=== PATIENT | male | born 1950 | race Caucasian/White ===

== ENCOUNTER 2020-06-08 08:10 | Outpatient (CLI) | payer MEDICARE, OTHER, SELFPAY ==
--- NOTE | 2020-06-08 08:23 | USCV_ITS ---
El Perez Age: 69 Gender: M : 1950 Exam Date: 06/08/2020 08:40 Ordering Phys: Jaz Chris APN Technologist: Ramesh Hassan Exam Location: [facility] [place] Indication: SCREENING HISTORY: Diameter (cm) AP x Transverse x Length Velocity (cm/s) Waveform Prox Aorta: 2.26 x 2.32 x 64.50 Mid Aorta: 2.20 x 2.63 x 85.90 Distal Aorta: 2.43 x 2.74 x 85.90 Right Iliac Prox: 1.04 x 1.45 x 78.60 Left Iliac Prox: 1.00 x 1.37 x 81.10 Stent Prox Landing x x Aneurysmal Sac Max x x Lt Lat Sac Dim Rt Lat Sac Dim Stent Dist Landing x x Right Iliac Stent x x Left Iliac Stent x x Right Renal Art Left Renal Art FINDINGS: CONCLUSIONS No significant abdominal aortic or bilateral iliac aneurysm. Mild atheromatous disease Adam Seo MD (Electronically Signed) Final Date: 08 June 2020 15:45 S
== END 2020-06-08 08:11 | disposition home or self-care (01) ==
LOC: RAD 08:17
PROVIDERS: Visit Provider Nurse Practitioner
DX: Z13.6 Encounter for screening for cardiovascular disorders (principal); Z87.891 Personal history of nicotine dependence; I70.0 Atherosclerosis of aorta
CPT/HCPCS: 93978

== ENCOUNTER 2020-09-28 08:44 | Outpatient (CLI) | payer MEDICARE, OTHER, SELFPAY ==
--- NOTE | 2020-09-28 09:05 | XRR_ITS ---
PROCEDURE INFORMATION: Exam: XR Left Knee Exam date and time: 09/28/2020 9:05 AM Age: 70 years old Clinical indication: Pain; Knee; Left; Additional info: Pain in left knee TECHNIQUE: Imaging protocol: XR Left knee. Views: 1 or 2 views. COMPARISON: No relevant prior studies available. FINDINGS: Bones/joints: No fracture. No dislocation. No joint space narrowing. Mild joint effusion. There is an enthesophyte at the superior margin of the patella. Soft tissues: No acute soft tissue abnormality. XR/XR knee LT 1-2V [id number] IMPRESSION: Mild joint effusion.
== END 2020-09-28 08:45 | disposition home or self-care (01) ==
LOC: RADWPI 08:49
PROVIDERS: PCP Nurse Practitioner; Visit Provider Nurse Practitioner
DX: M25.562 Pain in left knee (principal); M25.462 Effusion, left knee
CPT/HCPCS: 73560

== ENCOUNTER 2021-03-29 11:39 | Outpatient (CLI) | payer MEDICARE, SELFPAY ==
--- NOTE | 2021-03-29 11:52 | XRR_ITS ---
PROCEDURE INFORMATION: Exam: XR Cervical Spine Exam date and time: 03/29/2021 12:10 PM Age: 70 years old Clinical indication: Pain; Cervicalgia; Patient HX: Strain while lifting 1 week ago TECHNIQUE: Imaging protocol: XR of the cervical spine. Views: 2 or 3 views. COMPARISON: No relevant prior studies available. FINDINGS: Bones/joints: No fracture or other acute bone or joint abnormalities are seen in the cervical spine. There is anterior fusion which is probably surgically related from C5-C7. Degenerative changes are present with mild disc space narrowing. There is no significant malalignment. Soft tissues: Unremarkable. XR/XR cervical spine 3V* [id number] IMPRESSION: No acute abnormalities are seen in the cervical spine.
== END 2021-03-29 11:40 | disposition home or self-care (01) ==
PROVIDERS: PCP Nurse Practitioner; Visit Provider Nurse Practitioner Family
DX: M54.2 Cervicalgia (principal)
CPT/HCPCS: 72040

== ENCOUNTER → 2023-05-18 15:17 | Outpatient (BNVA) | payer MEDICARE, SELFPAY | PROVIDERS: PCP Nurse Practitioner; Visit Provider Emergency Medicine | DX: S69.91XA Unspecified injury of right wrist, hand and finger(s), initial encounter (principal); X58.XXXA Exposure to other specified factors, initial encounter | CPT/HCPCS: 73110 ==

== ENCOUNTER → 2023-06-08 10:11 | Outpatient (BNVA) | payer MEDICARE, SELFPAY | PROVIDERS: PCP Nurse Practitioner; Referring Provider Emergency Medicine; Visit Provider Student in an Organized Health Care Education/Training Program | DX: S63.501A Unspecified sprain of right wrist, initial encounter (principal); W01.0XXA Fall on same level from slipping, tripping and stumbling without subsequent striking against object, initial encounter | CPT/HCPCS: 73110; 99203 ==

== ENCOUNTER 2024-01-10 11:12 | Emergency (ER) | payer MEDICARE, SELFPAY ==
[2024-01-10 11:21] VITALS: BP 145/71; PULSE 61; RESP 16; TEMP 36.4; O2SAT 98; BMI 23.9
[2024-01-10 11:40] LABS: Basophils # 0.1 10^3/uL (0.0-0.1); Basophils % 0.7 %; Eosinophils # 0.6 10^3/uL (0.0-0.8); Eosinophils % 7.1 %; Hematocrit 46.2 % (37-53); Lymphocytes # 1.8 10^3/uL (0.8-4.8); Lymphocytes % 21.6 %; Mean Corpuscular HGB Conc 32.7 g/dL (30-55); Mean Corpuscular Hemoglobin 27.8 pg (27-33); Mean Corpuscular Volume 84.9 fl (82-101); Mean Platelet Volume 8.7 fL (7.4-10.4); Monocytes # 1.2 10^3/uL (0.2-0.9); Monocytes % 14.6 %; Neutrophils # 4.61 10^3/uL (1.8-7.7); Neutrophils % 55.6 %; Nucleated Red Blood Cells % 0 %; Platelet Count 349 10^3/cmm (157-399); Red Blood Count 5.44 10^6/uL (3.85-5.65); Red Cell Distribution Width 12.9 % (12.1-15.1); White Blood Count 8.29 10^3/uL (3.29-11.43)
--- NOTE | 2024-01-10 12:06 | ED_ITS ---
HPI - Abdominal Pain 2 General: Chief Complaint: Abdominal Pain Stated Complaint: abd pain Time Seen by Provider: 01/10/24 11:28 Source: patient Mode of arrival: ambulatory History of Present Illness: 73-year-old male presents emergency comp laint left upper quadrant pain for last couple of weeks. He has tried Pepto-Bismol and other [id number] medications still began to turn black and is concerned it may be blood no hematemesis or coffee-ground emesis. He has reported about 10 pound weight loss over the last couple of weeks. MD elicited complaint: abdominal pain Associated Symptoms: Denies chills, dysuria and fever(s) Review of Systems 2 Const: Denies: fever(s) or chills Card: Denies: chest pain Resp: Denies: dyspnea GI: Denies: abdominal pain : Denies: dysuria, urinary frequency or urinary urgency Musc: Denies: neck pain or back pain Skin/Breast: Denies: rash PFSH ED 2 PFSH: Social History Smoking and tobacco/nicotine status: never used tobacco/nicotine Second hand smoke exposure: No Alcohol intake: current Alcohol intake frequency: few times a week Alcohol type: beer Substance/Drug Use: never Physical Exam 2 Const: COMMON NORMALS: no acute distress GENERAL APPEARANCE: cooperative and comfortable ORIENTATION/CONSCIOUSNESS: Yes awake, Yes oriented to person, Yes oriented to place and Yes oriented to time HENMT: COMMON NORMALS: normocephalic, atraumatic and hearing grossly normal bilaterally HEAD & SCALP: normocephalic and atraumatic Resp: COMMON NORMALS: normal respiratory effort, No retractions, No use of accessory muscles and clear to auscultation bilaterally AUSCULTATION: clear to auscultation bilaterally Cardio: COMMON NORMALS: regular rate, regular rhythm and No murmurs present (Cardio) RATE: regular rate RHYTHM: regular rhythm GI: COMMON NORMALS: Soft to palpation and No hepatosplenomegaly present A USCULTATION: Yes normoactive bowel sounds PALPATION: Yes Soft to palpation, No Tenderness to palpation present (GI), No Guarding due to palpation present (GI) and Yes No hepatosplenomegaly present Extremity: COMMON NORMALS: normal to inspection, capillary refill normal, no clubbing, cyanosis or edema, no calf tenderness and no pedal edema Neuro: SENSORIUM/ORIENTATION: Yes oriented to person, Yes oriented to place and Yes oriented to time Skin: COMMON NORMALS: no rashes or lesions noted GENERAL SKIN EXAM: no rashes or lesions noted Course 2 Vital Signs: Vital signs: Vital Signs Temperature 97.6 F 01/10/24 11:21 Pulse Rate 57 L 01/10/24 13:16 Respiratory Rate 18 01/10/24 13:16 Blood Pressure 136/69 01/10/24 13:16 Pulse Oximetry 96 01/10/24 13:16 Oxygen Delivery Me thod Room Air 01/10/24 11:21 MDM - Abdominal Pain Medical Decision Making CT shows left upper quadrant abdominal mass. Rectal exam negative for occult blood suspect the dark stool that he seen was for Pepto-Bismol. Will set him up for an outpatient CT abdomen pelvis with IV and oral contrast and follow-up with general surgery to further evaluate mass Differential Diagnosis Likely abdominal pain Medical Records I reviewed the patient's medical records. Lab Data I reviewed the patient's lab results. 01/10/24 11:32 01/10/24 11:32 Labs/Radiology: Laboratory Results WBC 8.29 10^3/uL (3.29-11.43) 01/10/24 11:32 RBC 5.44 10^6/uL (3.85-5.65) 01/10/24 11:32 Hgb 15.10 g/dL (11.27-16.99) 01/10/24 11:32 Hct 46.2 % (37-53) 01/10/24 11:32 MCV 84.9 fl (82-101) 01/10/24 11:32 MCH 27.8 pg (27-33) 01/10/24 11:32 MCHC 32.7 g/dL (30-55) 01/10/24 11:32 RDW 12.9 % (12.1-15.1) 01/10/24 11:32 Plt Count 349 10^3/cmm (157-399) 01/10/24 11:32 MPV 8.7 fL (7.4-10.4) 01/10/24 11:32 Neut % (Auto) 55.6 % 01/10/24 11:32 Lymph % (Auto) 21.6 % 01/10/24 11:32 [place] % (Auto) 14.6 % 01/10/24 11:32 Eos % (Auto) 7.1 % 01/10/24 11:32 Baso % (Auto) 0.7 % 01/10/24 11:32 Neut # (Auto) 4.61 10^3/uL (1.8-7.7) 01/10/24 11:32 Lymph # (Auto) 1.8 10^3/uL (0.8-4.8) 01/10/24 11:32 [place] # (Auto) 1.2 10^3/uL (0.2-0.9) H 01/10/24 11:32 Eos # (Auto) 0.6 10^3/uL (0.0-0.8) 01/10/24 11:32 Baso # (Auto) 0.1 10^3/uL (0.0-0.1) 01/10/24 11:32 Nucleated RBC % (auto) 0 % 01/10/24 11:32 Nucleated RBCs # 0.0 /100WBC 01/10/24 11:32 Sodium 131 mmol/L (136-145) L 01/10/24 11:32 Potassium 4.5 mmol/L (3.5-5.1) 01/10/24 11:32 Chloride 94 mmol/L (98-107) L 01/10/24 11:32 Carbon Dioxide 26 mmol/L (22-29) 01/10/24 11:32 Anion Gap 15.5 (5-19) 01/10/24 11:32 BUN 14 mg/dL (8-23) 01/10/24 11:32 Creatinine 0.8 mg/dL (0.7-1.2) 01/10/24 11:32 GFR Calculation Not Reportable 01/10/24 11:32 Glucose 153 mg/dL (65-115) H 01/10/24 11:32 Calculated Osmolality 276 mOsm/kg (285-295) L 01/10/24 11:32 Calcium 9.3 mg/dL (8.5-10.5) 01/10/24 11:32 Total Bilirubin 0.6 mg/dL (0.15-1.2) 01/10/24 11:32 AST 21 U/L (0-40) 01/10/24 11:32 ALT 26 U/L (0-41) 01/10/24 11:32 Alkaline Phosphatase 125 U/L (40-130) 01/10/24 11:32 Total Protein 7.6 g/dL (6.6-8.7) 01/10/24 11:32 Albumin 3.5 g/dL (3.5-5.2) 01/10/24 11:32 Globulin 4.1 g/dL (1.3-4.6) 01/10/24 11:32 Lipase 80 U/L (13-60) H 01/10/24 11:32 Urine Color Yellow (Yellow) 01/10/24 11:57 Urine Appearance Clear (CLEAR) 01/10/24 11:57 Urine pH 5 (5-7) 01/10/24 11:57 Ur Specific [place] 1.020 (1.005-1.030) 01/10/24 11:57 Urine Protein Trace (Negative) 01/10/24 11:57 Urine Glucose (UA) 2+ (Normal) H 01/10/24 11:57 Urine Ketones 1+ (Negative) H 01/10/24 11:57 Urine Blood Neg (Negative) 01/10/24 11:57 Urine Nitrate Negative (Negative) 01/10/24 11:57 Urine Bilirubin 1+ (Negative) H 01/10/24 11:57 Urine Urobilinogen Norm mg/dL (Negative) 01/10/24 11:57 Ur Leukocyte Esterase Negative (Negative) 01/10/24 11:57 Urine RBC 0-4 /hpf (0-2) H 01/10/24 11:57 Urine WBC 0-4 /hpf (0-5) H 01/10/24 11:57 Ur Squamous Epith Cells 0-4 /hpf (0-5) H 01/10/24 11:57 Amorphous Sediment Not Reportable 01/10/24 11:57 Urine Bacteria Trace /hpf (NONE) 01/10/24 11:57 Urine Mucus 1+ /hpf 01/10/24 11:57 All radiology interpretation(s) finalized by discharge Discharge Plan Discharge Patient Disposition: Home Clinical Impression: Abdominal pain, Abdominal mass, left upper quadrant Condition: Stable Prescriptions: No Action metformin 1,000 mg tablet 1,000 mg PO BID atorvastatin 40 mg tablet 40 mg PO DAILY meloxicam 15 mg tablet 15 mg PO DAILY carvedilol 6.25 mg tablet 6.25 mg PO BID Rx Instructions: must administer with a meal/food aspirin [Adult Low Dose Aspirin] 81 mg tablet,delayed release (DR/EC) 81 mg PO DAILY losartan 25 mg tablet 25 mg PO DAILY Invokana 100 mg tablet 100 mg PO DAILY cinnamon bark [Cinnamon] 500 mg capsule 500 mg PO BID garlic extract 400 mg tablet 400 mg PO DAILY multivitamin [Daily Multi-Vitamin] Tablet 1 tab PO DAILY clopidogrel 75 mg tablet 75 mg PO DAILY sildenafil 25 mg tablet 25 mg PO DAILY PRN (Reason: UNKNOWN) Discharge Orders: Discharge ED (Routine); Ordered 01/10/24 Ordered By: Wilman Melendez Referrals: Jaz Chris TOWER OBSERVER [Primary Care Provider] - Discharge Diet: Usual diet Discharge Activity: Increase activity as tolerated Patient Instructions: Abdominal Pain (ED), Opioid Safety, Pain Management Activity Restrictions/Additional Instructions: Thank you for choosing [facility] for your healthcare needs today. Please realize this is an emergency room and that we are providing you with a medical screening exam and this may not be complete and all inclusive of all the testing and or work up that you may need to determine your ailment or severity of your illness. It is very important that you follow up as instructed or that you return to the Emergency Department should you have concerns or if your condition changes or worsens in any way. web development manager will make arrangements for her to have an outpatient CT abdomen and pelvis with oral and IV contrast and follow-up with the general surgeon for further evaluation of the left upper quadrant mass. Coding Level of Care Code ED Executive Secretary Social Welfare for Paddy Kohli
--- NOTE | 2024-01-10 12:07 | CT_ITS ---
WS: [id number] CT ABDOMEN AND PELVIS NONCONTRAST HISTORY: Abdominal pain TECHNIQUE: Imaging performed through the abdomen and pelvis. Coronal and sagittal reformats are submi tted. All CT scans at [facility] use at least one of these dose optimization techniques: auto mated exposure control; mA and/or kV adjustment per patient size (includes targeted exams where dose is matched to clinical indication); or iterative reconstruction. DLP: 483.23 mGy.cm COMPARISON: None available. Lower thorax: Chronic emphysema. Normal heart. Small hiatal hernia. Liver: Normal size liver. No mass or bile duct dilatation. Gallbladder: Normal gallbladder. No pericholecystic fluid or cholelithiasis. No gallbladder wall thic kening. Pancreas: Normal size and attenuation. Normal pancreatic duct. No pancreatitis or mass. Spleen: Granulomata. Normal size. Adrenal glands: RIGHT adrenal gland is normal. Normal LEFT adrenal gland is not identified. At the si te of the LEFT adrenal gland is a soft tissue mass. Mass measures 3.5 x 5.5 cm and extends over a scott gth of 6.3 cm. This is a single round lobulated mass. There are additional smaller masses which are p robably lymph nodes. Right kidney: Normal size kidney with no mass or hydronephrosis. Left kidney: No obstruction. The mass superior to the LEFT kidney appears separate. There is a small fat plane. Vascular calcification. Aorta: Mild atherosclerosis abdominal aorta with no aneurysm. There is several abnormal lymph nodes beginning in the celiac axis and at the GE junction. These lymp h nodes are subcentimeter. There is a more focal mass centered in the region of the LEFT adrenal glan d described above. There are additional enlarged retroperitoneal lymph nodes on the LEFT. The largest is 1.8 cm. Some of these lymph nodes extend to encase the LEFT renal artery and vein. The vein does not appear enlarged. GI tract: Normal noncontrast imaging of the stomach, small bowel and colon. No obstruction or wall th ickening. Normal appendix. Abdominal wall: Negative. No hernia. Pelvis: No free fluid. No adenopathy in the pelvis. Prostate enlargement and central calcifications. Osseous structures: Unremarkable. IMPRESSION: 1. LEFT upper quadrant mass in the region of the adrenal gland. Adrenal gland is not identified as a separate structure. Mass measures 3.5 x 5.5 x 6.3 cm. There are additional abnormal lymph nodes arou nd the celiac axis and in the retroperitoneum. These lymph nodes are contiguous with the LEFT renal a rtery and vein. Differential includes an adrenal cortical carcinoma with metastasis, metastatic lymph nodes and lymphoma. 2. Mass appears separate from the kidney and pancreas. 3. Recommend additional evaluation. Follow-up CT abdomen and pelvis with IV and oral contrast and/or PET/CT.
[2024-01-10 12:14] LABS: Alanine Aminotransferase 26 U/L (0-41); Albumin Level 3.5 g/dL (3.5-5.2); Alkaline Phosphatase 125 U/L (40-130); Anion Gap 15.5 (5-19); Aspartate Amino Transferase 21 U/L (0-40); Blood Urea Nitrogen 14 mg/dL (8-23); Calcium 9.3 mg/dL (8.5-10.5); Carbon Dioxide 26 mmol/L (22-29); Chloride 94 mmol/L (98-107); Creatinine Clr Calc Pharmacy 78.4226; Globulin 4.1 g/dL (1.3-4.6); Glucose 153 mg/dL (65-115); Lipase 80 U/L (13-60); Osmolality Calculated 276 mOsm/kg (285-295); Potassium 4.5 mmol/L (3.5-5.1); Sodium 131 mmol/L (136-145); Total Bilirubin 0.6 mg/dL (0.15-1.2); Total Protein 7.6 g/dL (6.6-8.7)
[2024-01-10 12:33] LABS: Add Urine Culture? No; Add Urine Microscopic? YES; Bacteria Urine TRACE /hpf; Bilirubin Urine 1+ (Negative); Blood Urine Neg (Negative); Glucose Urine UA 2+ (Normal); Ketones Urine 1+ (Negative); Leukocyte Esterase Urine Negative (Negative); Mucus Urine 1+ /hpf; Nitrate Urine Negative (Negative); Protein Urine Trace (Negative); RBC Urine 0-4 /hpf (0-2); Squamous Epithelial Cell Urine 0-4 /hpf (0-5); Urine Appearance Clear (CLEAR); Urine Color Yellow (Yellow); Urobilinogen Urine Norm (Negative); WBC Urine 0-4 /hpf (0-5); pH Urine 5 (5-7)
[2024-01-10 12:44] VITALS: BP 137/68; PULSE 54; RESP 18; O2SAT 97
[2024-01-10 13:16] VITALS: BP 136/69; PULSE 57; RESP 18; O2SAT 96
--- NOTE | 2024-01-15 14:30 | DCPLANNER ---
Patient called today - Message sent to Gen surg to follow up with Patient FIDENCIO-
--- NOTE | 2024-01-15 14:48 | PC.SOCIAL ---
General Surgery Follow Up Message sent to clinic for f/u appt; clinic to contact patient with appt date/time.
--- NOTE | 2024-01-15 15:16 | PC.SOCIAL ---
CT orders faxed to [facility] scheduling.
== END 2024-01-10 15:26 | disposition home or self-care (01) ==
PROVIDERS: Emergency Medicine; Emergency Provider Family Medicine; PCP Nurse Practitioner
DX: R10.12 Left upper quadrant pain (principal); R19.02 Left upper quadrant abdominal swelling, mass and lump; Z79.02 Long term (current) use of antithrombotics/antiplatelets; Z79.82 Long term (current) use of aspirin; Z79.84 Long term (current) use of oral hypoglycemic drugs
CPT/HCPCS: 36415; 74176; 80053; 81001; 83690; 85025; 99284

== ENCOUNTER → 2024-01-18 10:45 | Outpatient (BNVA) | payer MEDICARE, SELFPAY | PROVIDERS: PCP Nurse Practitioner Family; Visit Provider Surgery | DX: E27.8 Other specified disorders of adrenal gland (principal); R10.12 Left upper quadrant pain; K59.09 Other constipation; Z12.11 Encounter for screening for malignant neoplasm of colon | CPT/HCPCS: 99204 ==

== ENCOUNTER 2024-03-12 06:58 | Day surgery (SDC) | payer MEDICARE, SELFPAY ==
[2024-03-12 07:27] VITALS: BP 136/118; PULSE 93; RESP 18; TEMP 36.3; O2SAT 97
[2024-03-12 07:30] LABS: Glucose Point of Care 145 mg/dL (70-110)
[2024-03-12] MEDS: sodium chloride 0.9% 1,000 ML 30 ML IV (07:41)
--- NOTE | 2024-03-12 08:13 | PM.HP ---
Providers/Chief Complaint Primary Care Provider: SANDY Grimes Chief Complaint: Z12.11 History of Present Illness El Perez is a 73 year old male Review of Systems General: Reports: 10 or more systems reviewed and unremarkable except in HPI and below Medications/Allergies Home Medications Medication Instructions Recorded Confirmed Last Taken Type metformin 1,000 mg tablet 1,000 mg PO BID 03/27/21 03/10/24 03/09/24 History aspirin 81 mg tablet,delayed 81 mg PO DAILY 11/28/22 03/10/24 02/28/24 History release (Adult Low Dose Aspirin) atorvastatin 40 mg tablet 40 mg PO DAILY 11/28/22 03/10/24 03/09/24 History canagliflozin 100 mg tablet 100 mg PO DAILY 11/28/22 03/10/24 03/09/24 History (Invokana) carvedilol 6.25 mg tablet 6.25 mg PO BID 11/28/22 03/10/24 03/12/24 History clopidogrel 75 mg tablet 75 mg PO DAILY 11/28/22 03/10/24 02/28/24 History garlic extract 400 mg tablet 400 mg PO DAILY 11/28/22 03/10/24 03/09/24 History losartan 25 mg tablet 25 mg PO DAILY 11/28/22 03/10/24 03/09/24 History meloxicam 15 mg tablet 15 mg PO DAILY 11/28/22 03/10/24 03/09/24 History multivitamin (Daily Multi-Vitamin 1 tab PO DAILY 11/28/22 03/10/24 03/09/24 History tablet) sildenafil 25 mg tablet (Viagra) 25 mg PO DAILY PRN UNKNOWN 01/10/24 03/10/24 Unknown History hydrocodone 10 mg-acetaminophen 1 tab PO Q6H PRN pain 7 days #28 02/22/24 03/10/24 03/09/24 Rx 325 mg tablet tabs Allergies Allergy/AdvReac Type Severity Reaction Status Date / Time codeine Allergy ADR-Nausea Verified 03/10/24 08:59 PFSH Acute PFSH: Social History Smoking and tobacco/nicotine status: never used tobacco/nicotine Second hand smoke exposure: No Alcohol intake: current Alcohol intake frequency: few times a week Alcohol type: beer Substance/Drug Use: never Vitals/I&O/Wt Last Vital Signs Temp 97.4 F L 03/12/24 07:27 Pulse 93 03/12/24 07:27 Resp 18 03/12/24 07:27 BP 136/118 03/12/24 07:27 Pulse Ox 97 03/12/24 07:27 O2 Del Method Room Air 03/12/24 07:27 Weight last 48 hrs Weight 143 lb A&P Assessment and plan (1) Left upper quadrant pain: (2) Colon cancer screening: Plan EGD and colonoscopy Attestations Medical Necessity Statement*: Home Coding Level of Care Code Acute Code for g Fwd Diagnoses Left upper quadrant pain R10.12 Colon cancer screening Z12.11
--- NOTE | 2024-03-12 08:21 | ANES.PREANE2 ---
Pre-Anesthetic Assessment Height/Weight: Height 1.7 m Weight 64.864 kg Temp Pulse Resp BP Pulse Ox O2 Del Method 97.4 F L 93 18 136/118 97 Room Air 03/12/24 07:27 03/12/24 07:27 03/12/24 07:27 03/12/24 07:27 03/12/24 07:27 03/12/24 07:27 Operation Date: 03/12/24 08:00 Proposed Procedures p EGD(Not Applicable) - Rg Morrison DO s Colonoscopy(Not Applicable) - Rg Morrison DO Was Beta Elier taken within 24 hours: Yes Last intake: Intake Last Liquid Date 03/11/24 Last Liquid Time 22:00 Last Solid Date 03/10/24 Last Solid Time 19:00 Social No alcohol and No tobacco Airway Submandibular: within normal limits Adrenal Mass Anesthetic Plan ASA status: 3 Anesthesia: MAC Medications/Allergies Home Medications Medication Instructions Recorded Confirmed Last Taken Type metformin 1,000 mg tablet 1,000 mg PO BID 03/27/21 03/10/24 03/09/24 History aspirin 81 mg tablet,delayed 81 mg PO DAILY 11/28/22 03/10/24 02/28/24 History release (Adult Low Dose Aspirin) atorvastatin 40 mg tablet 40 mg PO DAILY 11/28/22 03/10/24 03/09/24 History canagliflozin 100 mg tablet 100 mg PO DAILY 11/28/22 03/10/24 03/09/24 History (Invokana) carvedilol 6.25 mg tablet 6.25 mg PO BID 11/28/22 03/10/24 03/12/24 History clopidogrel 75 mg tablet 75 mg PO DAILY 11/28/22 03/10/24 02/28/24 History garlic extract 400 mg tablet 400 mg PO DAILY 11/28/22 03/10/24 03/09/24 History losartan 25 mg tablet 25 mg PO DAILY 11/28/22 03/10/24 03/09/24 History meloxicam 15 mg tablet 15 mg PO DAILY 11/28/22 03/10/24 03/09/24 History multivitamin (Daily Multi-Vitamin 1 tab PO DAILY 11/28/22 03/10/24 03/09/24 History tablet) sildenafil 25 mg tablet (Viagra) 25 mg PO DAILY PRN UNKNOWN 01/10/24 03/10/24 Unknown History hydrocodone 10 mg-acetaminophen 1 tab PO Q6H PRN pain 7 days #28 02/22/24 03/10/24 03/09/24 Rx 325 mg tablet tabs Allergies Allergy/AdvReac Type Severity Reaction Status Date / Time codeine Allergy ADR-Nausea Verified 03/10/24 08:59 Current Medications Generic Name Dose Route Start Last Admin Trade Name Freq PRN Reason Stop Dose Admin Sodium Chloride 1,000 mls @ 30 mls/hr 03/12/24 07:15 03/12/24 07:41 Sodium Chloride 0.9% IV 30 mls/hr .Q24H MARILU Administration PFSH Anesthesia Social History Smoking and tobacco/nicotine status: never used tobacco/nicotine Second hand smoke exposure: No Alcohol intake: current Alcohol intake frequency: few times a week Alcohol type: beer Substance/Drug Use: never Data Anesthesia Cardiac Studies: No Data to Display
[2024-03-12 08:39] VITALS: BP 91/52; PULSE 71; RESP 20; O2SAT 98
[2024-03-12 08:53] VITALS: BP 102/59; PULSE 64; RESP 18; O2SAT 95
[2024-03-12 09:00] VITALS: BP 121/67; PULSE 60; RESP 18; O2SAT 95
--- NOTE | 2024-03-12 12:10 | ANE.PACU2 ---
Inpatient post-anesthesia follow up: Vital signs: Temperature 97.4 F Pulse Rate 60 Respiratory Rate 18 Blood Pressure 121/67 Pulse Oximetry 95 Oxygen Delivery Me thod Room Air Oxygen Flow Rate Fraction of Inspir ed Oxygen Hydration adequate: Yes Nausea and vomiting: No Pain level: 1 Mental status: Baseline
== END 2024-03-12 09:21 | disposition home or self-care (01) ==
PROVIDERS: PCP Nurse Practitioner Family; Visit Provider Surgery
PROC: 0DJ08ZZ Inspection of Upper Intestinal Tract, Via Natural or Artificial Opening Endoscopic (ICD-10-PCS; CPT 43235; principal; 2024-03-12 08:00)
PROC: 0DJD8ZZ Inspection of Lower Intestinal Tract, Via Natural or Artificial Opening Endoscopic (ICD-10-PCS; CPT 45378; 2024-03-12 08:00)
DX: Z12.11 Encounter for screening for malignant neoplasm of colon (principal); R10.12 Left upper quadrant pain; K21.00 Gastro-esophageal reflux disease with esophagitis, without bleeding; Z79.82 Long term (current) use of aspirin; Z79.84 Long term (current) use of oral hypoglycemic drugs
CPT/HCPCS: 36416; 43239; 45378; 82962; 88305; 88342; J2704; J7030

== ENCOUNTER → 2024-03-24 15:08 | Outpatient (BNVA) | payer MEDICARE, SELFPAY | PROVIDERS: PCP Nurse Practitioner Family; Visit Provider Surgery | DX: Z09 Encounter for follow-up examination after completed treatment for conditions other than malignant neoplasm (principal); K21.00 Gastro-esophageal reflux disease with esophagitis, without bleeding; E27.8 Other specified disorders of adrenal gland | CPT/HCPCS: 99214 ==

== ENCOUNTER 2024-04-28 09:00 | Outpatient (CLI) | payer MEDICARE, SELFPAY ==
--- NOTE | 2024-04-28 09:07 | CT_ITS ---
WS: [id number] CT ABDOMEN CONTRAST TECHNIQUE: Contrast enhanced CT of the abdomen with coronal and sagittal reformatted images. CLINICAL INFORMATION: ABDOMINAL PAIN COMPARISON: 01/10/2024 DLP: 244.[address] scans at [facility] use at least one of these dose optimization techniques: automated e xposure control; mA and/or kV adjustment per patient size (includes targeted exams where dose is matc hed to clinical indication); or iterative reconstruction. FINDINGS: Heterogeneously enhancing LEFT adrenal mass progressed compared to previous suspicious for adrenal co rtical carcinoma. This measures approximately 6.5 x 4.2 cm. Evidence of low-attenuation centrally lik leelee due to necrosis. Slight mass effect on the LEFT kidney. Presumed carcinoma abuts the aorta with l oss of the normal fat plane. Partial encasement of the celiac and SMA which remain patent. Progressed upper abdominal lymphadenopathy. New retrocrural lymphadenopathy. Splenic vein remains patent. Encas ement with narrowing of the LEFT renal artery which is poorly visualized. High-grade narrowing with n ear occlusion of the LEFT renal vein. Normal renal parenchymal enhancement. Small LEFT renal cyst. No hydronephrosis. Diffuse fatty infiltration of the liver. Normal gallbladder. Normal GE junction. Distended stomach wi th contrast. Abdominal aortic aneurysm measuring 2.5 x 2.9 cm AP by transverse. Aortic calcification. Fatty atrophy of the pancreas. Normal spleen. Bulky progressed periaortic and aortocaval lymphadenop athy. Pelvis is not included on this examination. CT/CT abdomen w con* [id number] IMPRESSION: 1. 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 2. Partial encasement of the celiac and SMA which remain patent. 3. Progressive upper abdominal, retrocrural, aortocaval, and para-aortic lymph adenopathy. 4. Encasement with poor visualization of the LEFT renal artery. High-grade deonan rowing of the LEFT renal vein. 5. Stable small abdominal aortic aneurysm. 6. Recommend oncology consultation.
--- NOTE | 2024-04-28 09:07 | CT_ITS ---
WS: [id number] LDCT LUNG CANCER SCREENING TECHNIQUE: Noncontrast CT of the chest with coronal and sagittal reformatted images. CLINICAL INFORMATION: HX OF TOBACCO USE COMPARISON: 01/10/2024 DLP: 59.67 mGy.cm DIvol: Mean CTDIvol: 1.00 (mGy) All CT scans at [facility] use at least one of these dose optimization techniques: automat ed exposure control; mA and/or kV adjustment per patient size (includes targeted exams where dose is matched to clinical indication); or iterative reconstruction. FINDINGS: A few calcified granulomas. Mild chronic emphysematous changes. No suspicious pulmonary par enchymal opacities. No axillary lymphadenopathy. Normal GE junction. RIGHT adrenal gland is normal. Anterior wedging of t he upper thoracic spine. Suspected enlarged LEFT infraclavicular and LEFT thoracic inlet lymph nodes. Aortic calcification. Coronary calcification. Calcified anterior mediastinal lymph nodes. Partially visualized LEFT adrenal mass with lymphadenopathy in the upper abdomen and retrocrural lymp hadenopathy. See CT abdomen pelvis report. CT/CT lung screening [id number] IMPRESSION: Presumed LEFT adrenal neoplasm with lymphadenopathy in the upper ab domen. See concurrent CT abdomen pelvis report LEFT thoracic inlet/infraclavicular lymphadenopathy. Recommend oncology consultation for presumed LEFT adrenal neoplasm. LUNG-RADS: 2S-Benign Appearance or Behavior with Significant Findings FOLLOW UP: See Report
[2024-04-28 10:19] LABS: Blood Urea Nitrogen 12 mg/dL (8-23)
[2024-04-28] MEDS: iohexol 350 mg/mL 500 mL Btl (per mL) PO (11:11)
[2024-04-28] MEDS: iohexol 350 mg/mL 500 mL Btl (per mL) IV (11:11)
== END 2024-04-28 09:01 | disposition home or self-care (01) ==
LOC: RAD 09:02
PROVIDERS: PCP Nurse Practitioner Family; Visit Provider Nurse Practitioner Family
DX: Z87.891 Personal history of nicotine dependence (principal); J84.10 Pulmonary fibrosis, unspecified; I25.10 Atherosclerotic heart disease of native coronary artery without angina pectoris; I70.0 Atherosclerosis of aorta; I89.8 Other specified noninfective disorders of lymphatic vessels and lymph nodes; D35.02 Benign neoplasm of left adrenal gland
CPT/HCPCS: 71271; 74160; 82565; 84520; Q9967

== ENCOUNTER 2024-05-13 13:32 | Observation (INO) | payer MEDICARE, SELFPAY ==
[2024-05-13] VITALS (8 sets, daily range): BP systolic 110–121; BP diastolic 68–83; PULSE 71–88; RESP 16–26; TEMP 36.3–36.7; O2SAT 96–97; BMI 19.3
--- NOTE | 2024-05-13 14:29 | CTR_ITS ---
PROCEDURE INFORMATION: Exam: CT Abdomen And Pelvis With Contrast Exam date and time: 05/13/2024 4:29 PM Age: 73 years old Clinical indication: Abdominal pain; Additional info: Abd pain TECHNIQUE: Imaging protocol: Computed tomography of the abdomen and pelvis with contrast. Radiation optimization: All CT scans at this facility use at least one of these dose optimization techniques: automated exposure control; mA and/or kV adjustment per patient size (includes targeted exams where dose is matched to clinical indication); or iterative reconstruction. Contrast material: OMNI 350; Contrast volume: 100 ml; Contrast route: INTRAVENOUS (IV); COMPARISON: CT abdomen w con* [id number] 04/28/2024 10:55 AM RADIATION DOSE METRICS: Total DLP (mGy-cm): 386 FINDINGS: Lungs: Centrilobular emphysema. Right middle lobe lung scarring. No suspicious lower lung nodules. Liver: Liver is normal in size and contour. No suspicious liver mass. Hepatic veins and portal veins are patent. No intrahepatic biliary dilatation. Gallbladder and biliary ducts: Gallbladder is normal. No biliary duct dilatation. Pancreas: No pancreatic mass or pancreatitis. Pancreatic duct normal in caliber. Spleen: The spleen demonstrates punctate calcifications, consistent with remote granulomatous organism exposure. Adrenal glands: Heterogeneous left adrenal mass measuring 7.4 x 5.6 x 10.7 cm (AP x transverse x CC). Less than 180-degree encasement of the abdominal aorta at the level of the adrenals. Greater than 180-degree encasement of the infrarenal abdominal aorta. Kidneys and ureters: No suspicious renal mass. No hydronephrosis or nephrolithiasis. Ureters are normal. Renal cyst. Stomach and bowel: Unremarkable. No obstruction. No mucosal thickening. Appendix: No evidence of appendicitis. Intraperitoneal space: Unremarkable. No free air. No significant fluid collection. Vasculature: Less than 180-degree encasement of the celiac artery and SMA. Overall the lesion has slightly increased in size previously measuring a proximally 6.4 x 5.1 x 9.1 centimeters with measuring similar fashion. There are no fat planes between the lesion in the pancreas concerning for pancreatic involvement. Encasement of the left renal artery and vein. Ectatic dilatation of the infrarenal abdominal aorta measuring 31 millimeters, unchanged Lymph nodes: Multiple suspicious gastrohepatic, periaortic, portacaval, and retroperitoneal lymph nodes measuring up to 1.2 centimeters for example: series 3, images 21, 24, 40). Right para-aortic enlarged lymph node measuring 2.2 x 2.2 centimeters (series 3, image 17). Urinary bladder: Unremarkable as visualized. Reproductive: Marked prostatomegaly. Bones/joints: Unremarkable. No acute fracture. Soft tissues: Unremarkable. CT/CT abdomen pelvis w con* [id number] IMPRESSION: 1. 7.4 x 5.6 x 10.7 centimeters left adrenal mass has slightly increased in size with partial encasement of the celiac, SMA, aorta, right renal artery and renal veins. Suspected involvement of the pancreas. 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 2. Ongoing retroperitoneal lymphadenopathy. 3. Stable infrarenal abdominal aortic aneurysm. COMMENTS: Consistent with the [employer]'s Incidental Findings Committee white paper (J Am Marvin Radiol 2018): Any incidental renal lesion less than 1 cm or classified as too small to characterize, or any incidental cystic renal lesion characterized as simple-appearing, is likely benign. No follow-up imaging is recommended for these lesions per consensus recommendations based on imaging criteria.
--- NOTE | 2024-05-13 14:29 | XRR_ITS ---
PROCEDURE INFORMATION: Exam: XR Chest Exam date and time: 05/13/2024 2:42 PM Age: 73 years old Clinical indication: Cough and dyspnea; Additional info: Dyspnea/cough TECHNIQUE: Imaging protocol: Radiologic exam of the chest. Views: 1 view. COMPARISON: CT lung screening [id number] 04/28/2024 10:22 AM FINDINGS: Lungs: Unremarkable. No consolidation. Pleural spaces: Unremarkable. No pleural effusion. No pneumothorax. Heart/Mediastinum: Unremarkable. No cardiomegaly. Bones/joints: Unremarkable. XR/XR chest 1V portable [id number] IMPRESSION: No acute findings.
--- NOTE | 2024-05-13 14:53 | ED_ITS ---
HPI - Weakness 2 General: Chief complaint: Weakness Stated complaint: abd pain, hasnt eaten for a week Time Seen by Provider: 05/13/24 14:28 Source: patient Mode of arrival: ambulatory History of Present Illness: 73-year-old male with a known Left adren al mass. It has been known for several months has been seeing several different doctors. He is in the process of having it biopsied. He has a follow-up appointment in approximately a week to [address] Delgado in [place] he is previously seen Dr. Morrison and Dr. Fierro. Presents today because of decreasing ability to take in solid food. He can swallow liquids okay but feels like he cannot swallow solids. He throws it back up. He has not eaten hardly anything solid and on nearly 2 weeks per his and his family's report. He previously had an EGD which she described as showing lesions . He denies any hematochezia melena hematemesis or coffee- ground emesis. MD Complaint: generalized weakness Onset (ago): month(s) (6-7) Duration: progressively worsening Relieving factors: none Exacerbating factors: other (Eating) Associated symptoms: Reports decreased appetite, myalgias, nausea and vomiting; Denies chest pain, chills, confusion, melena, diaphoresis, dysuria, easy bruising, fever(s), headache(s), rash, short of breath or syncope Review of Systems 2 Const: Denies: fever(s), chills or diaphoresis Card: Denies: chest pain or syncope Resp: Denies: dyspnea GI: Reports: abdominal pain, nausea, vomiting, dysphagia and GI cramping; Denies: melena : Denies: dysuria, urinary frequency or urinary urgency Musc: Denies: neck pain or back pain Skin/Breast: Denies: rash Neuro: Denies: headache(s) or confusion Maurice/Lymph: Denies: easy bruising PFSH ED 2 PFSH: Medical History Hx of type 2 diabetes mellitus Adrenal mass Surgical History Hx of shoulder surgery right History of coronary artery stent placement Social History (Reviewed 05/14/24 @ 06:14 by SAMANTHA Duque Smoking and tobacco/nicotine status: never used tobacco/nicotine Second hand smoke exposure: No Alcohol intake: current Alcohol intake frequency: few times a week Alcohol type: beer Substance/Drug Use: never Physical Exam 2 Const: GENERAL APPEARANCE: cooperative and comfortable NUTRITIONAL APPEARANCE: cachectic ORIENTATION/CONSCIOUSNESS: Yes awake, Yes oriented to person, Yes oriented to place and Yes oriented to time HENMT: COMMON NORMALS: normocephalic, atraumatic and hearing grossly normal bilaterally HEAD & SCALP: normocephalic and atraumatic Resp: COMMON NORMALS: normal respiratory effort, No retractions, No use of accessory muscles and clear to auscultation bilaterally AUSCULTATION: clear to auscultation bilaterally Cardio: COMMON NORMALS: regular rate, regular rhythm and No murmurs present (Cardio) RATE: regular rate RHYTHM: regular rhythm GI: COMMON NORMALS: No hepatosplenomegaly present AUSCULTATION: Yes normoactive bowel sounds PALPATION: Yes Tenderness to palpation present (GI), No Guarding due to palpation present (GI) and Yes No hepatosplenomegaly present Extremity: COMMON NORMALS: normal to inspection, capillary refill normal, no clubbing, cyanosis or edema, no calf tenderness and no pedal edema Neuro: SENSORIUM/ORIENTATION: Yes oriented to person, Yes oriented to place and Yes oriented to time Skin: COMMON NORMALS: no rashes or lesions noted GENERAL SKIN EXAM: no rashes or lesions noted Course 2 Vital Signs: Vital signs: Vital Signs Temperature 98.6 F 05/14/24 04:00 Pulse Rate 75 05/14/24 04:00 Respiratory Rate 18 05/14/24 04:00 Blood Pressure 99/60 05/14/24 04:00 Pulse Oximetry 97 05/14/24 04:00 Oxygen Delivery Me thod Room Air 05/14/24 04:00 MDM - Weakness Medical Decision Making Patient has starvation ketosis.'s labs and imaging are reviewed. Imaging shows slightly enlarging adrenal mass suspected involvement of the pancreas. Abdominal and retroperitoneal lymphadenopathy. Concern patient may have an esophageal stricture in addition to his cancer with his difficulty swallowing. He will likely need an EGD to evaluate his dysphagia. Hydration, continued PPI. Discussed with hospitalist orders written. Medical Records I reviewed the patient's medical records. Lab Data I reviewed the patient's lab results. 05/14/24 05:15 05/13/24 14:52 Radiology Impressions Abdomen/Pelvis CT 05/13/24 14:29 IMPRESSION: 1. 7.4 x 5.6 x 10.7 centimeters left adrenal mass has slightly increased in size with partial encasement of the celiac, SMA, aorta, right renal artery and renal veins. Suspected involvement of the pancreas. 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 2. Ongoing retroperitoneal lymphadenopathy. 3. Stable infrarenal abdominal aortic aneurysm. COMMENTS: Consistent with the [employer]'s Incidental Findings Committee white paper (J Am Marvin Radiol 2018): Any incidental renal lesion less than 1 cm or classified as too small to characterize, or any incidental cystic renal lesion characterized as simple-appearing, is likely benign. No follow-up imaging is recommended for these lesions per consensus recommendations based on imaging criteria. Chest X-Ray 05/13/24 14:29 IMPRESSION: No acute findings. Laboratory Results WBC 6.71 10^3/uL (3.29-11.43) 05/13/24 14:52 RBC 6.02 10^6/uL (3.85-5.65) H 05/13/24 14:52 Hgb 16.00 g/dL (11.27-16.99) 05/13/24 14:52 Hct 50.8 % (37-53) 05/13/24 14:52 MCV 84.4 fl (82-101) 05/13/24 14:52 MCH 26.6 pg (27-33) L 05/13/24 14:52 MCHC 31.5 g/dL (30-55) 05/13/24 14:52 RDW 15.5 % (12.1-15.1) H 05/13/24 14:52 Plt Count 525 10^3/cmm (157-399) H 05/13/24 14:52 MPV 8.6 fL (7.4-10.4) 05/13/24 14:52 Neut % (Auto) 74.8 % 05/13/24 14:52 Lymph % (Auto) 14.9 % 05/13/24 14:52 [place] % (Auto) 8.6 % 05/13/24 14:52 Eos % (Auto) 0.4 % 05/13/24 14:52 Baso % (Auto) 0.7 % 05/13/24 14:52 Neut # (Auto) 5.01 10^3/uL (1.8-7.7) 05/13/24 14:52 Lymph # (Auto) 1.0 10^3/uL (0.8-4.8) 05/13/24 14:52 [place] # (Auto) 0.6 10^3/uL (0.2-0.9) 05/13/24 14:52 Eos # (Auto) 0.0 10^3/uL (0.0-0.8) 05/13/24 14:52 Baso # (Auto) 0.1 10^3/uL (0.0-0.1) 05/13/24 14:52 Nucleated RBC % (auto) 0 % 05/13/24 14:52 Nucleated RBCs # 0.0 /100WBC 05/13/24 14:52 Sodium 134 mmol/L (136-145) L 05/13/24 14:52 Potassium 4.7 mmol/L (3.5-5.1) 05/13/24 14:52 Chloride 91 mmol/L (98-107) L 05/13/24 14:52 Carbon Dioxide 20 mmol/L (22-29) L 05/13/24 14:52 Anion Gap 27.7 (5-19) H 05/13/24 14:52 BUN 21 mg/dL (8-23) 05/13/24 14:52 Creatinine 0.7 mg/dL (0.7-1.2) 05/13/24 14:52 GFR Calculation Not Reportable 05/13/24 14:52 Glucose 136 mg/dL (65-115) H 05/13/24 14:52 Calculated Osmolality 283 mOsm/kg (285-295) L 05/13/24 14:52 Lactic Acid 2.6 mmol/L (0.5-2.2) H 05/13/24 14:52 Calcium 10.4 mg/dL (8.5-10.5) 05/13/24 14:52 Magnesium 1.7 mg/dL (1.7-2.3) 05/13/24 14:52 Total Bilirubin 0.6 mg/dL (0.15-1.2) 05/13/24 14:52 AST 15 U/L (0-40) 05/13/24 14:52 ALT 10 U/L (0-41) 05/13/24 14:52 Alkaline Phosphatase 167 U/L (40-130) H 05/13/24 14:52 Creatine Kinase 16 U/L (39-308) L 05/13/24 14:52 Total Protein 8.2 g/dL (6.6-8.7) 05/13/24 14:52 Albumin 2.9 g/dL (3.5-5.2) L 05/13/24 14:52 Globulin 5.3 g/dL (1.3-4.6) H 05/13/24 14:52 Lipase 21 U/L (13-60) 05/13/24 14:52 Serum Ketones Positive (Negative) H 05/13/24 14:52 All radiology interpretation(s) finalized by discharge Discharge Plan Discharge Patient Disposition: Admitted As Inpatient Admit Provider: Leticia Kendall Clinical Impression: Adrenal mass, Severe dehydration, Ketosis Condition: Stable Coding Level of Care Code ED Branch Customer Service Representative for Paddy Kohli
[2024-05-13 15:09] LABS: Basophils # 0.1 10^3/uL (0.0-0.1); Basophils % 0.7 %; Eosinophils % 0.4 %; Hematocrit 50.8 % (37-53); Lymphocytes % 14.9 %; Mean Corpuscular HGB Conc 31.5 g/dL (30-55); Mean Corpuscular Hemoglobin 26.6 pg (27-33); Mean Corpuscular Volume 84.4 fl (82-101); Mean Platelet Volume 8.6 fL (7.4-10.4); Monocytes # 0.6 10^3/uL (0.2-0.9); Monocytes % 8.6 %; Neutrophils # 5.01 10^3/uL (1.8-7.7); Neutrophils % 74.8 %; Nucleated Red Blood Cells % 0 %; Platelet Count 525 10^3/cmm (157-399); Red Blood Count 6.02 10^6/uL (3.85-5.65); Red Cell Distribution Width 15.5 % (12.1-15.1); White Blood Count 6.71 10^3/uL (3.29-11.43)
[2024-05-13 15:30] LABS: Alanine Aminotransferase 10 U/L (0-41); Albumin Level 2.9 g/dL (3.5-5.2); Alkaline Phosphatase 167 U/L (40-130); Anion Gap 27.7 (5-19); Aspartate Amino Transferase 15 U/L (0-40); Blood Urea Nitrogen 21 mg/dL (8-23); Calcium 10.4 mg/dL (8.5-10.5); Carbon Dioxide 20 mmol/L (22-29); Chloride 91 mmol/L (98-107); Creatine Phosphokinase 16 U/L (39-308); Creatinine Clr Calc Pharmacy 62.5229; Globulin 5.3 g/dL (1.3-4.6); Glucose 136 mg/dL (65-115); Lipase 21 U/L (13-60); Magnesium 1.7 mg/dL (1.7-2.3); Osmolality Calculated 283 mOsm/kg (285-295); Potassium 4.7 mmol/L (3.5-5.1); Sodium 134 mmol/L (136-145); Total Bilirubin 0.6 mg/dL (0.15-1.2); Total Protein 8.2 g/dL (6.6-8.7)
[2024-05-13 15:31] LABS: Lactic Sepsis W/Reflex 2.6 mmol/L (0.5-2.2)
[2024-05-13 16:01] LABS: Ketone (Acetest) Serum Positive (Negative)
[2024-05-13] MEDS: iohexol 350 mg/mL 500 mL Btl (per mL) IV (16:32)
[2024-05-13] MEDS: SODIUM CHLORIDE 0.9% 1000 ML IV (16:47)
[2024-05-13 16:54] LABS: Reflex Lactate Order REFLEX LACTIC ORDERD
--- NOTE | 2024-05-13 18:19 | P.HP_ITS ---
Providers/Chief Complaint 2 Admitting Physician: Leticia Kendall MD Primary Care Provider: SANDY Grimes Chief Complaint: abd pain, hasnt eaten for a week History of Present Illness El Perez is a 73 year old male with history of left adrenal mass, has seen casting coordinator and a surgeon at [facility], EGD colonoscopy did not show any malignancy, that was done by Dr. Morrison here, presented with chief complaint of not been able to eat. Patient stating that for last few months he has lost significant amount of weight, he has not noticed any fever but he is complaining of pain every time he tries to eat that is contributing to worsening weight loss not wanting to eat. He got weak to the point he is not able to get up on his feet. He is experiencing muscle mass loss. CT scan in the ER showing 7.4 x 5 x 10 cm left renal mass partially encasing celiac SMA aorta right renal artery and vein. Some involvement of pancreas as well, spoke with the patient and the family, they are wanting transfer to [facility] from the ER but they want to take him right away I will like to admit the patient as observation until get a bed number at [facility]. Patient is well aware that we might not be able to do any aggressive intervention during his hospitalization other than IV nutrition and IV fluid hydration. Patient is full code Review of Systems 2 Const: Reports: chills, body aches, fatigue, malaise and night sweats; Denies: fever(s) Eyes: Denies: change in vision ENMT: Denies: throat pain or hoarseness Card: Denies: chest pain Resp: Reports: dyspnea GI: Reports: abdominal pain, nausea, early satiety, bloating, GI cramping and belching : Denies: flank pain Musc: Denies: neck pain Skin/Breast: Denies: rash Neuro: Denies: headache(s) Psych: Reports: anxiety Endo: Denies: polyuria Medications/Allergies Home Medications Medication Instructions Recorded Confirmed Last Taken Type metformin 1,000 mg tablet 1,000 mg PO BID 03/27/21 03/24/24 03/09/24 History aspirin 81 mg tablet,delayed 81 mg PO DAILY 11/28/22 03/24/24 02/28/24 History release (Adult Low Dose Aspirin) atorvastatin 40 mg tablet 40 mg PO DAILY 0103/24/24 03/09/24 History canagliflozin 100 mg tablet 100 mg PO DAILY 11/28/22 03/24/24 03/09/24 History (Invokana) carvedilol 6.25 mg tablet 6.25 mg PO BID 11/28/22 03/24/24 03/12/24 History clopidogrel 75 mg tablet 75 mg PO DAILY 11/28/22 03/24/24 02/28/24 History garlic extract 400 mg tablet 400 mg PO DAILY 11/28/22 03/24/24 03/09/24 History losartan 25 mg tablet 25 mg PO DAILY 11/28/22 03/24/24 03/09/24 History meloxicam 15 mg tablet 15 mg PO DAILY 11/28/22 03/24/24 03/09/24 History multivitamin (Daily Multi-Vitamin 1 tab PO DAILY 11/28/22 03/24/24 03/09/24 History tablet) sildenafil 25 mg tablet (Viagra) 25 mg PO DAILY PRN UNKNOWN 01/10/24 03/24/24 Unknown History pantoprazole 40 mg tablet,delayed 40 mg PO BID 90 days #180 tabs 03/12/24 03/24/24 Unknown Rx release (Protonix) hydrocodone 10 mg-acetaminophen 1 tab PO Q6H PRN pain 7 days #28 03/24/24 03/24/24 Unknown Rx 325 mg tablet tabs pantoprazole 40 mg tablet,delayed 40 mg PO BID 1 month #60 tabs 03/24/24 03/24/24 Unknown Rx release (Protonix) Allergies Allergy/AdvReac Type Severity Reaction Status Date / Time codeine Allergy ADR-Nausea Verified 05/13/24 13:59 PFSH Acute 2 PFSH: Medical History Hx of type 2 diabetes mellitus Adrenal mass Surgical History Hx of shoulder surgery right History of coronary artery stent placement Social History Smoking and tobacco/nicotine status: never used tobacco/nicotine Second hand smoke exposure: No Alcohol intake: current Alcohol intake frequency: few times a week Alcohol type: beer Substance/Drug Use: never Vitals/I&O/Wt Last Vital Signs Pulse 71 05/13/24 17:16 Resp 16 05/13/24 17:16 BP 110/83 05/13/24 17:16 Pulse Ox 96 05/13/24 17:16 O2 Del Method Room Air 05/13/24 17:16 Weight last 48 hrs Weight 53.751 kg Physical Exam 2 Narrative: Dehydrated Sarcopenia Malnourished Cachectic GCS 15 Awake and alert No abdominal discomfort Hemodynamically stable Currently on room air Family at the bedside Pleasant and cooperative Alert oriented x 3 GCS 15 Data 05/13/24 14:52 05/13/24 14:52 Micro: Microbiology 05/13/24 14:55 Blood Culture - Preliminary Blood SPECIMEN COLLECTED 05/13/24 14:52 Blood Culture - Preliminary Blood SPECIMEN COLLECTED A&P Assessment and plan (1) Adrenal mass: (2) GERD with esophagitis: (3) Chronic constipation: (4) Adrenocortical cancer: (5) Mesenteric ischemia: (6) Severe dehydration: (7) Ketosis: Plan Left adrenal mass Patient endorsing not been able to eat, significant weight loss, worsening of pain on eating Concern for adrenal cortical cancer It is involving most of the great vessels causing mesenteric ischemia, It is now involving the right renal vessels as well Patient needs biopsy and immediate intervention to halt further progression of possible underlying cancer which is still undiagnosed Patient is wanting to be transferred to [facility] I have called [facility] awaiting phone call from the hospitalist Patient has seen casting coordinator and general surgeon at [facility] already During the stay in the hospital I will start him on PPN and IV fluid hydration His lactic acid and ketones are evidence of starvation ketosis He has received significant amount of fluid in the ER I will hold off on metformin Keep patient on clear liquid diet Would use opioids for pain relief along bowel regimen DVT prophylaxis: Lovenox Patient is full code discussed with the patient and his family Recent EGD colonoscopy: Unremarkable no sign of cancer Attestations 2 Medical Necessity Statement*: Anticipating transfer to [facility] within 48 hours Diagnoses Adrenal mass E27.8 GERD with esophagitis K21.00 Chronic constipation K59.09 Adrenocortical cancer C74.00 Mesenteric ischemia K55.9 Severe dehydration E86.0 Ketosis E88.89
[2024-05-13] MEDS: enoxaparin 40 mg/0.4 mL Syringe SUBCUT (19:40)
[2024-05-13] MEDS: dextrose 5%-sod chloride 0.9% 1,000 ML 100 ML IV (19:41)
--- NOTE | 2024-05-13 19:53 | PC.NURSE ---
Report called to Jyoti Abdullahi RN; all questions and concerns were addressed at time of report.
[2024-05-13 20:16] LABS: Add Urine Microscopic? YES; Bilirubin Urine 1+ (Negative); Blood Urine Neg (Negative); Glucose Urine UA 4+ (Normal); Ketones Urine 3+ (Negative); Leukocyte Esterase Urine Negative (Negative); Nitrate Urine Negative (Negative); Protein Urine 1+ (Negative); Urine Appearance Clear (CLEAR); Urine Color Yellow (Yellow); Urobilinogen Urine Norm (Negative); pH Urine 5 (5-7)
[2024-05-13 20:17] LABS: Add Urine Culture? No; Bacteria Urine TRACE /hpf; RBC Urine 0-4 /hpf (0-2); WBC Urine 0-4 /hpf (0-5)
[2024-05-13 20:42] LABS: Glucose Point of Care 164 mg/dL (70-110)
[2024-05-13] MEDS: piperacillin-tazobactam 3.375 GM in sodium chloride 0.9% (plus) 50 ML IV (20:52)
[2024-05-13] MEDS: HYDROmorphone 1 mg/mL INJ 1 mL 0.4 MG IVP (20:56)
[2024-05-14] VITALS (7 sets, daily range): BP systolic 95–113; BP diastolic 53–68; PULSE 70–92; RESP 16–19; TEMP 36.3–37; O2SAT 93–97; BMI 19.3
[2024-05-14] MEDS: piperacillin-tazobactam 3.375 GM in sodium chloride 0.9% (plus) 50 ML IV (03:33)
[2024-05-14] MEDS: dextrose 5%-sod chloride 0.9% 1,000 ML 100 ML IV (05:15)
[2024-05-14 06:00] LABS: Basophils % 0.6 %; Eosinophils # 0.1 10^3/uL (0.0-0.8); Eosinophils % 1.1 %; Hematocrit 38.5 % (37-53); Lymphocytes # 0.6 10^3/uL (0.8-4.8); Lymphocytes % 11.6 %; Mean Corpuscular HGB Conc 32.2 g/dL (30-55); Mean Corpuscular Hemoglobin 26.4 pg (27-33); Mean Corpuscular Volume 81.9 fl (82-101); Mean Platelet Volume 8.8 fL (7.4-10.4); Monocytes # 0.8 10^3/uL (0.2-0.9); Monocytes % 15.4 %; Neutrophils # 3.71 10^3/uL (1.8-7.7); Neutrophils % 70.5 %; Nucleated Red Blood Cells % 0 %; Platelet Count 372 10^3/cmm (157-399); Red Cell Distribution Width 15.2 % (12.1-15.1); White Blood Count 5.26 10^3/uL (3.29-11.43)
[2024-05-14 06:23] LABS: Glucose Point of Care 178 mg/dL (70-110)
[2024-05-14 06:36] LABS: Anion Gap 15.5 (5-19); Blood Urea Nitrogen 14 mg/dL (8-23); Carbon Dioxide 25 mmol/L (22-29); Chloride 100 mmol/L (98-107); Glucose 162 mg/dL (65-115); Magnesium 1.5 mg/dL (1.7-2.3); Osmolality Calculated 288 mOsm/kg (285-295); Potassium 3.5 mmol/L (3.5-5.1); Sodium 137 mmol/L (136-145)
[2024-05-14] MEDS: insulin lispro 100 unit/1 mL SUBCUT ×2 (09:08→12:12)
[2024-05-14] MEDS: potassium phosphate (mEq K) 40 MEQ in sodium chloride 0.9% (100 ml) 100 ML 27.27 MEQ IV (09:09)
[2024-05-14] MEDS: magnesium sulfate premix 1 GM/100 ML PIGGYBACK IV (09:10)
[2024-05-14] MEDS: pantoprazole 40 mg SDV IVP ×2 (09:10→17:59)
[2024-05-14] MEDS: sennosides-docusate Tablet 2 TAB PO ×2 (09:10→17:59)
--- NOTE | 2024-05-14 10:02 | P.PN_ITS ---
Subjective 2 Subjective: Endorsing feeling better Mild signs of refeeding syndrome Fluids and magnesium [facility]/hospitalist did not accept transfer yesterday I will try to get in touch with the surgeon today if we can get a lead To start PPN today Advance diet Lactic acid improved Vitals/I&O/Wt Last Vital Signs Temp 97.5 F L 05/14/24 08:33 Pulse 77 05/14/24 09:19 Resp 18 05/14/24 09:19 BP 95/68 05/14/24 08:33 Pulse Ox 95 05/14/24 09:19 O2 Del Method Room Air 05/14/24 09:19 05/13/24 05/14/24 05/14/24 22:59 06:59 14:59 Intake Total 1612.53 / 1612.53 1156.667 / 2769.197 480 / 480 Output Total 0 / 0 Balance 1612.53 / 1612.53 1156.667 / 2769.197 480 / 480 Weight last 48 hrs Weight 56.155 kg Weight 56.155 kg Weight 53.751 kg Physical Exam 2 Narrative: Admission present Pleasant cooperative No abdominal pain at the bedside S1, S2 Hemodynamically stable Nonfocal neuroexam Data 05/14/24 05:15 05/14/24 05:15 Micro: Microbiology 05/13/24 14:55 Blood Culture - Preliminary Blood SPECIMEN COLLECTED 05/13/24 14:52 Blood Culture - Preliminary Blood SPECIMEN COLLECTED A&P Assessment and plan (1) Adrenal mass: (2) GERD with esophagitis: (3) Mesenteric ischemia: (4) Left upper quadrant pain: (5) Severe dehydration: (6) Ketosis: (7) Adrenocortical cancer: (8) Refeeding syndrome: Plan Signs of dehydration improving Start PPN Replenish magnesium and phosphorus Mild refeeding syndrome features noted [facility] did not accept the transfer yesterday. Full code DVT prophylaxis on board Continue opioids with bowel regimen Discontinue IV antibiotics Lactic acid was secondary to dehydration which is improved Most likely adrenal masses adrenocortical cancer which is spreading to involve great vessels and pancreas patient will need debulking surgery for symptom relief and possible vascular surgery consultation Attestations 2 Medical Necessity Statement*: Continue medical management Diagnoses Adrenal mass E27.8 GERD with esophagitis K21.00 Mesenteric ischemia K55.9 Left upper quadrant pain R10.12 Severe dehydration E86.0 Ketosis E88.89 Adrenocortical cancer C74.00 Refeeding syndrome E87.8
[2024-05-14 11:26] LABS: Glucose Point of Care 165 mg/dL (70-110)
--- NOTE | 2024-05-14 13:56 | PC.NURSE ---
Patient is up at [facility] does not want SCDs on. He can't get them off to go to the bathroom
[2024-05-14] MEDS: morphine IR 15 mg Tablet PO ×2 (15:03→19:15)
[2024-05-14 16:29] LABS: Glucose Point of Care 125 mg/dL (70-110)
--- NOTE | 2024-05-14 17:48 | PC.NURSE ---
Called report to Ivis Mark RN at [facility]
[2024-05-14] MEDS: enoxaparin 40 mg/0.4 mL Syringe SUBCUT (18:00)
--- NOTE | 2024-05-14 18:30 | PM.TDS ---
Transfer Summary Providers Date of Admission: 05/13/24 18:13 Date of Discharge/Transfer: 05/14/24 Attending Provider at Admission: Leticia Kendall MD Attending Provider at Transfer: Leticia Kendall MD Primary Care Provider: SANDY Grimes Transfer Plans: Anticipated date of transfer: 05/14/24. Diagnoses at Discharge Discharge Diagnosis (1) Adrenal mass: Status: Acute (2) GERD with esophagitis: Status: Acute (3) Mesenteric ischemia: Status: Acute (4) Left upper quadrant pain: Status: Acute (5) Severe dehydration: Status: Acute (6) Ketosis: Status: Acute (7) Adrenocortical cancer: Status: Acute (8) Refeeding syndrome: Status: Acute Reason for Visit Reason for Visit abd pain, hasnt eaten for a week Hospital Course Hospital Course 73 male with known history of diabetes, left renal mass, he was scheduled for renal biopsy 05/23 at [facility] with Dr. Delgado presented to the hospital with chief complaint of not been able to eat and dehydration. There is concern for refeeding syndrome at the time of admission in the hospital he had low electrolytes including magnesium and phosphorus. He was put on IV fluids, clear liquid diet, his diet was advanced to full liquid which she tolerated no active nausea vomiting however patient is stating that every time he tries to eat he gets abdominal pain and then he tries to avoid eating. CT scan of abdomen pelvis during hospitalization revealed FINDINGS: Lungs: Centrilobular emphysema. Right middle lobe lung scarring. No suspicious lower lung nodules. Liver: Liver is normal in size and contour. No suspicious liver mass. Hepatic veins and portal veins are patent. No intrahepatic biliary dilatation. Gallbladder and biliary ducts: Gallbladder is normal. No biliary duct dilatation. Pancreas: No pancreatic mass or pancreatitis. Pancreatic duct normal in caliber. Spleen: The spleen demonstrates punctate calcifications, consistent with remote granulomatous organism exposure. Adrenal glands: Heterogeneous left adrenal mass measuring 7.4 x 5.6 x 10.7 cm (AP x transverse x CC). Less than 180-degree encasement of the abdominal aorta at the level of the adrenals. Greater than 180-degree encasement of the infrarenal abdominal aorta. Kidneys and ureters: No suspicious renal mass. No hydronephrosis or nephrolithiasis. Ureters are normal. Renal cyst. Stomach and bowel: Unremarkable. No obstruction. No mucosal thickening. Appendix: No evidence of appendicitis. Intraperitoneal space: Unremarkable. No free air. No significant fluid collection. Vasculature: Less than 180-degree encasement of the celiac artery and SMA. Overall the lesion has slightly increased in size previously measuring a proximally 6.4 x 5.1 x 9.1 centimeters with measuring similar fashion. There are no fat planes between the lesion in the pancreas concerning for pancreatic involvement. Encasement of the left renal artery and vein. Ectatic dilatation of the infrarenal abdominal aorta measuring 31 millimeters, unchanged Lymph nodes: Multiple suspicious gastrohepatic, periaortic, portacaval, and retroperitoneal lymph nodes measuring up to 1.2 centimeters for example: series 3, images 21, 24, 40). Right para-aortic enlarged lymph node measuring 2.2 x 2.2 centimeters (series 3, image 17). Urinary bladder: Unremarkable as visualized. Reproductive: Marked prostatomegaly. Bones/joints: Unremarkable. No acute fracture. Soft tissues: Unremarkable. CT/CT abdomen pelvis w con* [id number] IMPRESSION: 1. 7.4 x 5.6 x 10.7 centimeters left adrenal mass has slightly increased in size with partial encasement of the celiac, SMA, aorta, right renal artery and renal veins. Suspected involvement of the pancreas. 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 2. Ongoing retroperitoneal lymphadenopathy. 3. Stable infrarenal abdominal aortic aneurysm Patient remained hemodynamically stable in the hospital I contacted [facility], surgeon Dr. Delgado recommended transfer to [facility] as cancer is locally invasive and will need surgical oncology and vascular surgery backup along interventional radiology in case he needs embolization during biopsy. Patient and his both agreeable for the transfer I reached out to [facility] transfer line, Dr. Miller excepted the patient and will consult surgical oncology team that I spoke with already, patient will go to [facility] Patient is being discharged with stable hemodynamics He is afebrile Currently on room air Blood pressure stable. Not in active pain. Patient is not on any anticoagulating agent. He was taking Plavix which has been held during hospitalization Please note patient had EGD and colonoscopy which were unremarkable no sign of malignancy were noted as per pathology report EGD showed reflux esophagitis no intestinal metaplasia ulcer or dysplasia identified Physical Exam Narrative: Hemodynamically stable Euvolemic Tolerating diet Pleasant cooperative Currently on room air Nonfocal neuroexam TS Data Studies Completed and Pending Pending at discharge Category Date Time Status Blood Culture Stat Lab 05/13/24 14:55 Results CMP [Comprehensive Metabolic Panel] AM LABS Lab 05/15/24 04:00 Ordered Complete Blood Count w/Auto AM LABS Lab 05/15/24 04:00 Ordered Completed Studies During Hospitalization Category Date Time Status CT abdomen pelvis w con* [id number] Stat Cat Scan 05/13/24 14:29 Completed XR chest 1V portable [id number] Stat Exams 05/13/24 14:29 Completed Laboratory Last Values WBC 5.26 10^3/uL (3.29-11.43) 05/14/24 05:15 RBC 4.70 10^6/uL (3.85-5.65) 05/14/24 05:15 Hgb 12.40 g/dL (11.27-16.99) 05/14/24 05:15 Hct 38.5 % (37-53) 05/14/24 05:15 MCV 81.9 fl (82-101) L 05/14/24 05:15 MCH 26.4 pg (27-33) L 05/14/24 05:15 MCHC 32.2 g/dL (30-55) 05/14/24 05:15 RDW 15.2 % (12.1-15.1) H 05/14/24 05:15 Plt Count 372 10^3/cmm (157-399) 05/14/24 05:15 MPV 8.8 fL (7.4-10.4) 05/14/24 05:15 Neut % (Auto) 70.5 % 05/14/24 05:15 Lymph % (Auto) 11.6 % 05/14/24 05:15 Pickett % (Auto) 15.4 % 05/14/24 05:15 Eos % (Auto) 1.1 % 05/14/24 05:15 Baso % (Auto) 0.6 % 05/14/24 05:15 Neut # (Auto) 3.71 10^3/uL (1.8-7.7) 05/14/24 05:15 Lymph # (Auto) 0.6 10^3/uL (0.8-4.8) L 05/14/24 05:15 Pickett # (Auto) 0.8 10^3/uL (0.2-0.9) 05/14/24 05:15 Eos # (Auto) 0.1 10^3/uL (0.0-0.8) 05/14/24 05:15 Baso # (Auto) 0.0 10^3/uL (0.0-0.1) 05/14/24 05:15 Nucleated RBC % (auto) 0 % 05/14/24 05:15 Nucleated RBCs # 0.0 /100WBC 05/14/24 05:15 Sodium 137 mmol/L (136-145) 05/14/24 05:15 Potassium 3.5 mmol/L (3.5-5.1) 05/14/24 05:15 Chloride 100 mmol/L (98-107) 05/14/24 05:15 Carbon Dioxide 25 mmol/L (22-29) 05/14/24 05:15 Anion Gap 15.5 (5-19) 05/14/24 05:15 BUN 14 mg/dL (8-23) 05/14/24 05:15 Creatinine 0.6 mg/dL (0.7-1.2) L 05/14/24 05:15 GFR Calculation Not Reportable 05/14/24 05:15 Glucose 162 mg/dL (65-115) H 05/14/24 05:15 POC Glucose 125 mg/dL (70-110) H 05/14/24 16:18 Calculated Osmolality 288 mOsm/kg (285-295) 05/14/24 05:15 Lactic Acid 2.6 mmol/L (0.5-2.2) H 05/13/24 14:52 Lactic Acid (Sepsis) 2.0 mmol/L (0.5-2.2) 05/13/24 19:01 Calcium 9.0 mg/dL (8.5-10.5) 05/14/24 05:15 Phosphorus 2.0 mg/dL (2.5-4.5) L 05/14/24 05:15 Magnesium 1.5 mg/dL (1.7-2.3) L 05/14/24 05:15 Total Bilirubin 0.6 mg/dL (0.15-1.2) 05/13/24 14:52 AST 15 U/L (0-40) 05/13/24 14:52 ALT 10 U/L (0-41) 05/13/24 14:52 Alkaline Phosphatase 167 U/L (40-130) H 05/13/24 14:52 Creatine Kinase 16 U/L (39-308) L 05/13/24 14:52 Total Protein 8.2 g/dL (6.6-8.7) 05/13/24 14:52 Albumin 2.9 g/dL (3.5-5.2) L 05/13/24 14:52 Globulin 5.3 g/dL (1.3-4.6) H 05/13/24 14:52 Lipase 21 U/L (13-60) 05/13/24 14:52 Urine Color Yellow (Yellow) 05/13/24 19:30 Urine Appearance Clear (CLEAR) 05/13/24 19:30 Urine pH 5 (5-7) 05/13/24 19:30 Ur Specific Decker 1.010 (1.005-1.030) 05/13/24 19:30 Urine Protein 1+ (Negative) H 05/13/24 19:30 Urine Glucose (UA) 4+ (Normal) H 05/13/24 19:30 Urine Ketones 3+ (Negative) H 05/13/24 19:30 Urine Blood Neg (Negative) 05/13/24 19:30 Urine Nitrate Negative (Negative) 05/13/24 19:30 Urine Bilirubin 1+ (Negative) H 05/13/24 19:30 Urine Urobilinogen Norm mg/dL (Negative) 05/13/24 19:30 Ur Leukocyte Esterase Negative (Negative) 05/13/24 19:30 Urine RBC 0-4 /hpf (0-2) H 05/13/24 19:30 Urine WBC 0-4 /hpf (0-5) H 05/13/24 19:30 Ur Squamous Epith Cells None /hpf (0-5) 05/13/24 19:30 Amorphous Sediment Not Reportable 05/13/24 19:30 Urine Bacteria Trace /hpf (NONE) 05/13/24 19:30 Serum Ketones Positive (Negative) H 05/13/24 14:52 Radiology Impressions Abdomen/Pelvis CT 05/13/24 14:29 IMPRESSION: 1. 7.4 x 5.6 x 10.7 centimeters left adrenal mass has slightly increased in size with partial encasement of the celiac, SMA, aorta, right renal artery and renal veins. Suspected involvement of the pancreas. 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 2. Ongoing retroperitoneal lymphadenopathy. 3. Stable infrarenal abdominal aortic aneurysm. COMMENTS: Consistent with the [employer]'s Incidental Findings Committee white paper (J Am Marvin Radiol 2018): Any incidental renal lesion less than 1 cm or classified as too small to characterize, or any incidental cystic renal lesion characterized as simple-appearing, is likely benign. No follow-up imaging is recommended for these lesions per consensus recommendations based on imaging criteria. Chest X-Ray 05/13/24 14:29 IMPRESSION: No acute findings. Recent Clincial Data Last Vital Signs Temp 97.5 F L 05/14/24 15:37 Pulse 92 05/14/24 15:37 Resp 19 H 05/14/24 15:37 BP 99/53 05/14/24 15:37 Pulse Ox 93 05/14/24 15:37 O2 Del Method Room Air 05/14/24 15:37 Vital Signs Temp Pulse Resp BP Pulse Ox O2 Del Method 05/14/24 15:37 97.5 F L 92 19 H 99/53 93 Room Air 05/14/24 15:03 16 95 05/14/24 11:39 97.3 F L 71 16 113/53 95 Room Air 05/14/24 09:19 77 18 95 Room Air 05/14/24 08:33 97.5 F L 70 18 95/68 94 Room Air Intake & Output/Weight 05/12/24 05/13/24 05/14/24 05/15/24 06:59 06:59 06:59 06:59 Intake Total 2769.197 / 2769.197 2218.5106 / 2218.5106 Output Total 0 / 0 Balance 2769.197 / 2769.197 2218.5106 / 2218.5106 Weight 56.155 kg Vitals Last Vital Signs Temp 97.5 F L 05/14/24 15:37 Pulse 92 05/14/24 15:37 Resp 19 H 05/14/24 15:37 BP 99/53 05/14/24 15:37 Pulse Ox 93 05/14/24 15:37 O2 Del Method Room Air 05/14/24 15:37 TS Medications Medications Acetaminophen (Acetaminophen 500 Mg Tablet) 500 mg PO Q4H PRN PRN Reason: fever Albuterol/Ipratropium (Ipratropium-Albuterol 3 Ml Neb) 3 ml INHALATION Q6H PRN PRN Reason: SHORTNESS OF BREATH Enoxaparin Sodium (Enoxaparin 40 Mg/0.4 Ml Syringe) 40 mg SUBCUT Q24H COUNT INCLUDES THE [facility] Last Admin: 05/14/24 18:00 Dose: 40 mg Glucagon (Glucagon 1 Mg/Ml Kit 1 Ml) 1 mg IM ONCE PRN; Protocol PRN Reason: Adult Acute Hypoglycemia Nursing Prot. Hydromorphone HCl (Hydromorphone 1 Mg/Ml Inj 1 Ml) 0.4 mg IVP Q4H PRN PRN Reason: SEVERE PAIN Last Admin: 05/13/24 20:56 Dose: 0.4 mg Dextrose (D5w) 500 mls @ 0 mls/hr IV ONCE PRN; Protocol PRN Reason: Adult Acute Hypoglycemia Prot Dextrose (D10w) 125 mls @ 750 mls/hr IV PRN PRN; Protocol PRN Reason: Adult Acute Hypoglycemia Nursing Protocol Dextrose (D10w) 250 mls @ 1,000 mls/hr IV PRN PRN; Protocol PRN Reason: Adult Acute Hypoglycemia Nursing Protocol Insulin Human Lispro (Insulin Lispro 100 Unit/1 Ml) 0 unit SUBCUT TIDWM COUNT INCLUDES THE [facility]; Protocol Last Admin: 05/14/24 18:00 Dose: Not Given Morphine Sulfate (Morphine Ir 15 Mg Tablet) 15 mg PO Q4H PRN PRN Reason: SEVERE PAIN Last Admin: 05/14/24 15:03 Dose: 15 mg Ondansetron HCl (Ondansetron 2 Mg/Ml Sdv 2 Ml) 4 mg IVP Q6H PRN PRN Reason: NAUSEA AND VOMITING Pantoprazole Sodium (Pantoprazole 40 Mg Sdv) 40 mg IVP BID COUNT INCLUDES THE [facility] Last Admin: 05/14/24 17:59 Dose: 40 mg Senna/Docusate Sodium (Sennosides-Docusate Tablet) 2 tab PO BID COUNT INCLUDES THE [facility] Last Admin: 05/14/24 17:59 Dose: 2 tab Discontinued Medications Sodium Chloride (Sodium Chloride 0.9%) 1,612.53 mls @ 1,612.53 mls/hr 30 ml/kg infuse over 1 hr (1612.53 ml) IV .Q1H ONE Stop: 05/13/24 16:39 Last Infusion: 05/13/24 18:24 Dose: Infused Potassium Chloride/Dextrose/Sod Cl (D5-Ns 0.45% + Kcl 20 Meq) 20 meq in 1,000 mls @ 100 mls/hr IV .Q10H MARILU Last Admin: 05/13/24 19:32 Dose: Not Given Piperacillin Sod/Tazobactam (Sod 3.375 gm/ Sodium Chloride) 50 mls @ 12.5 mls/hr IV Q8H MARILU; Protocol Last Infusion: 05/14/24 16:17 Dose: Infused Dextrose/Sodium Chloride (Dextrose 5%-Sod Chloride 0.9%) 1,000 mls @ 100 mls/hr IV .Q10H [facility]ILU Last Infusion: 05/14/24 16:16 Dose: Infused Potassium Phosphate 40 meq/ (Sodium Chloride) 108.5106 mls @ 27.273 mls/hr IV ONCE ONE Stop: 05/14/24 12:28 Last Infusion: 05/14/24 16:17 Dose: Infused Magnesium Sulfate/Dextrose (Magnesium Sulfate Premix) 1 gm in 100 mls @ 200 mls/hr IV ONCE ONE Stop: 05/14/24 08:42 Last Infusion: 05/14/24 16:16 Dose: Infused Multivitamins 10 ml/ Amino (Acids/Electrolytes/Dextrose) 1,010 mls @ 42 mls/hr IV .Q24H [facility]ILU Iohexol (Iohexol 350 Mg/Ml 500 Ml Btl (Per Ml)) 0 ml IV ONCE ONE Stop: 05/13/24 16:31 Last Admin: 05/13/24 16:32 Dose: 100 ml Allergies codeine Allergy (Verified 05/13/24 13:59) ADR-Nausea Home Medications aspirin 81 mg tablet,delayed release (Adult Low Dose Aspirin) 81 mg PO DAILY 11/28/22 [History Confirmed 05/13/24] atorvastatin 40 mg tablet 40 mg PO DAILY 11/28/22 [History Confirmed 05/13/24] carvedilol 6.25 mg tablet 6.25 mg PO BID 11/28/22 [History Confirmed 05/13/24] clopidogrel 75 mg tablet 75 mg PO DAILY 11/28/22 [History Confirmed 05/13/24] garlic extract 400 mg tablet 400 mg PO DAILY 11/28/22 [History Confirmed 05/13/24] meloxicam 15 mg tablet 15 mg PO DAILY 11/28/22 [History Confirmed 05/13/24] multivitamin (Daily Multi-Vitamin tablet) 1 tab PO DAILY 11/28/22 [History Confirmed 05/13/24] pantoprazole 40 mg tablet,delayed release (Protonix) 40 mg PO BID 90 days #180 tabs 03/12/24 [Rx Confirmed 05/13/24] hydrocodone 10 mg-acetaminophen 325 mg tablet 1 tab PO Q6H PRN pain 7 days #28 tabs 03/24/24 [Rx Confirmed 05/13/24] pantoprazole 40 mg tablet,delayed release (Protonix) 40 mg PO BID 1 month #60 tabs 03/24/24 [Rx Confirmed 05/13/24] Discharge Plan Discharge Patient Disposition: Xfer Other Condition: Stable Prescriptions: No Action atorvastatin 40 mg tablet 40 mg PO DAILY meloxicam 15 mg tablet 15 mg PO DAILY Hold Instructions: Resume on 03/14/24. carvedilol 6.25 mg tablet 6.25 mg PO BID Rx Instructions: must administer with a meal/food aspirin [Adult Low Dose Aspirin] 81 mg tablet,delayed release (DR/EC) 81 mg PO DAILY garlic extract 400 mg tablet 400 mg PO DAILY multivitamin [Daily Multi-Vitamin] Tablet 1 tab PO DAILY clopidogrel 75 mg tablet 75 mg PO DAILY Hold Instructions: Resume on 03/14/24. pantoprazole [Protonix] 40 mg tablet,delayed release (DR/EC) 40 mg PO BID 30 Days Qty: 60 12RF hydrocodone-acetaminophen 10-325 mg tablet 1 tab PO Q6H PRN (Reason: pain) 7 Days Qty: 28 0RF pantoprazole [Protonix] 40 mg tablet,delayed release (DR/EC) 40 mg PO BID 90 Days Qty: 180 0RF Referrals: Sosa,SANDY Schofield [Primary Care Provider] - Patient Instructions: Opioid Safety Transfer Attestations Time Spent in Transfer Care: greater than 30 min Quality Metrics Clinical Quality Measures [ No reported AMI, CVA or VTE this stay] Coding Level of Care Code Acute Code for g Fwd Diagnoses Adrenal mass E27.8 GERD with esophagitis K21.00 Mesenteric ischemia K55.9 Left upper quadrant pain R10.12 Severe dehydration E86.0 Ketosis E88.89 Adrenocortical cancer C74.00 Refeeding syndrome E87.8
== END 2024-05-14 19:27 | disposition other institution (70) ==
LOC: ER 16:19 → MEDSURG 18:44
PROVIDERS: Admitting Provider Internal Medicine; Emergency Provider Family Medicine; PCP Nurse Practitioner Family; Visit Provider Internal Medicine
DX: C74.00 Malignant neoplasm of cortex of unspecified adrenal gland (principal); E27.8 Other specified disorders of adrenal gland; K21.00 Gastro-esophageal reflux disease with esophagitis, without bleeding; K55.9 Vascular disorder of intestine, unspecified; R10.12 Left upper quadrant pain; E86.0 Dehydration; E88.89 Other specified metabolic disorders; E87.8 Other disorders of electrolyte and fluid balance, not elsewhere classified; E11.9 Type 2 diabetes mellitus without complications; R63.0 Anorexia; Z68.1 Body mass index [BMI] 19.9 or less, adult
CPT/HCPCS: 36415; 36416; 71045; 74177; 80048; 80053; 81001; 82009; 82550; 82962; 83605; 83690; 83735; 84100; 85025; 87040; 96365; 96367; 96372; 96375; 99285; C9113; G0378; J1170; J1650; J1815; J2543; J3475; J7030; J7042; Q9967